=== PATIENT | female | born 1990 | race African-American/Black ===

== ENCOUNTER 2018-01-25 14:17 | Emergency (ER) | payer OTHER ==
[2018-01-25 15:09] LABS: BILIRUBIN,URINE NEGATIVE (NEG); COLOR,URINE YELLOW; GLUCOSE,URINE NEGATIVE (NEG); NITRITE,URINE NEGATIVE (NEG); PROTEIN,URINE NEGATIVE (NEG-TRACE)
[2018-01-25 15:18] LABS: CLARITY,URINE CLEAR
[2018-01-25 15:21] LABS: RBC,URINE 0 /HPF (0-2); WBC,URINE RARE /HPF (0-4)
[2018-01-25 15:22] LABS: BACTERIA,URINE 0 /HPF (0-FEW); SQUAMOUS EPITHELIAL CELL,UR FEW /LPF
[2018-01-26 14:33] LABS: CHLAMYDIA PROBE Negative (Negative); GC PROBE Negative (Negative)
== END 2018-01-25 16:12 | disposition home or self-care (01) ==
LOC: ER 14:17
DX: K64.9 Unspecified hemorrhoids (principal)
CPT/HCPCS: 81001; 87491; 87591; 99284; Q0111

== ENCOUNTER 2019-07-26 10:26 | Emergency (ER) | payer OTHER ==
[~2019-07-26] VITALS: Ht 152.4 cm; Wt 99.8 kg
[2019-07-26 10:30] VITALS: BP 132/55
[2019-07-26 11:25] LABS: BILIRUBIN,URINE NEGATIVE (NEG); CLARITY,URINE CLEAR; COLOR,URINE YELLOW; NITRITE,URINE NEGATIVE (NEG); PH,URINE 5.5; PROTEIN,URINE NEGATIVE (NEG-TRACE); UROBILINOGEN,URINE 0.2 mg/dL (0.2 mg/dL)
[2019-07-26 11:36] LABS: BACTERIA,URINE FEW /HPF (0-FEW); SQUAMOUS EPITHELIAL CELL,UR MOD /LPF
[2019-07-26] MEDS ORDERED: PHEN100T82 PO (12:07)
[2019-07-26] MEDS ORDERED: METR-34 PO (12:07)
[2019-07-26] MEDS ORDERED: CEPH-264 PO (12:07)
--- NOTE | 2019-07-26 12:08 | PHYS DOC ---
Past Medical History Past Medical History: No Pertinent History Past Surgical History: Other Additional Past Surgical Histo: breast reduction Alcohol Use: Occasionally Drug Use: None Adult General Chief Complaint Chief Complaint: VAGINAL PROBLEM HPI HPI Patient is a 29 year old AA female who presents to the emergency department with complaints of irregular chunky white vaginal discharge that started 2 weeks ago. Patient states she used Monistat probably 10 days ago and the symptoms improved for about 3 days but then began again after she had sex. She denies any vaginal odor. She states she has vaginal itching, white discharge, and that her labia feels swollen. Patient also reports pain with urination. She denies any concerns of sexually transmitted infections, she denies any new sexual partners. She currently rates her pain as 7-1/2 out of 10, there are no alleviating or exacerbating factors. She denies any hematuria, diarrhea, nausea, vomiting, low back pain, abdominal pain, or pelvic pain. All other ROS is neg unless otherwise noted in HPI. Review of Systems Review of Systems See Above Allergies Allergies Allergies Coded Allergies Type Severity Reaction Last Updated Verified No Known Drug Allergies 03/08/14 No Physical Exam Physical Exam See Above Constitutional: Well developed, well nourished, no acute distress, non-toxic appearance. [] HENT: Normocephalic, atraumatic, bilateral external ears normal, , nose normal. [] Eyes: PERRLA, EOMI, conjunctiva normal, no discharge. [] Neck: Normal range of motion, no stridor. [] Lungs & Thorax: Respirations even and unlabored, no retractions, no respiratory distress Pelvic Exam: Director And Professor present Megan CRUZ Abdomen: Nontender, soft External Genitalia: Normal Skin, mild swelling of vulva Speculum: Normal vaginal mucosa, chunky white vaginal discharge, normal cervical discharge Bimanual: No adnexal masses or tenderness, No CMT Skin: Warm, dry, no erythema, no rash. [] Back: No CVA tenderness. [] Extremities: No cyanosis, no clubbing, ROM intact, no edema. [] Neurologic: Alert and oriented X 3, no focal deficits noted. [] Psychologic: Affect normal, judgement normal, mood normal. [] Current Patient Data Vital Signs Vital Signs Date Time Temp Pulse Resp B/P (MAP) Pulse Ox O2 Delivery O2 Flow Rate FiO2 07/26/19 10:30 97.6 99 17 132/55 (80) 99 Room Air 97.6 Lab Values Laboratory Tests Test 07/26/19 10:33 07/26/19 10:41 Urine Collection Type Void Urine Color Yellow Urine Clarity Clear Urine pH 5.5 Urine Specific [place] 1.025 Urine Protein Negative mg/dL (NEG-TRACE) Urine Glucose (UA) Negative mg/dL (NEG) Urine Ketones (Stick) Negative mg/dL (NEG) Urine Blood Trace (NEG) Urine Nitrite Negative (NEG) Urine Bilirubin Negative (NEG) Urine Urobilinogen Dipstick 0.2 mg/dL (0.2 mg/dL) Urine Leukocyte Esterase Large (NEG) Urine RBC 1-2 /HPF (0-2) Urine WBC 5-10 /HPF (0-4) Urine Squamous Epithelial Cells Mod /LPF Urine Bacteria Few /HPF (0-FEW) Urine Mucus Mod /LPF POC Urine HCG, Qualitative Hcg negative (Negative) Microbiology 07/26/19 Wet Prep - Final, Complete EKG EKG [] Radiology/Procedures Radiology/Procedures [] Course & Med Decision Making Course & Med Decision Making Pertinent Labs and Imaging studies reviewed. (See chart for details) dx: UTI, BV wet mount concerning for clue cells, no yeast. UA concerning for UTI Prescriptions for keflex, flagyl, and pyridium Patient verbalized an understanding of home care, medications, follow-up, and return to ED instructions and was in agreement with the plan of care. [] Dragon Disclaimer Dragon Disclaimer This electronic medical record was generated, in whole or in part, using a voice recognition dictation system. Departure Departure Impression: Primary Impression: UTI (lower urinary tract infection) Additional Impression: BV (bacterial vaginosis) Disposition: 01 HOME, SELF-CARE Condition: STABLE Referrals: UNKNOWN PCP NAME (PCP) Patient Instructions: Bacterial Vaginosis, [id number], Urinary Tract Infection, [id number] Additional Instructions: Fill the prescriptions and use as directed. Increase clear fluid intake and avoid bladder irritants such as spicy foods, caffeine, and carbonation. The results of your gonorrhea and chlamydia testing will not be available for 48 hours. Follow-up with your HOUSEKEEPING SUPERVISOR next week. Return to the emergency room if symptoms worsen. Scripts Phenazopyridine Hcl (PYRIDIUM) 100 Mg Tablet 1 TAB PO TID for urinary discomfort for 3 Days, #9 TAB 0 Refills Prov: ANALI CHRISTIAN APRN 07/26/19 Metronidazole (METRONIDAZOLE) 500 Mg Tablet 1 TAB PO BID for 7 Days, #14 TAB 0 Refills Prov: ANALI CHRISTIAN APRN 07/26/19 Cephalexin (KEFLEX) 500 Mg Capsule 1 CAP PO BID for 7 Days, #14 CAP 0 Refills Prov: ANALI CHRISTIAN APRN 07/26/19 Problem Qualifiers ANALI CHRISTIAN APRN Jul 26, 2019 12:07
[2019-07-27 16:12] LABS: GC PROBE Negative (Negative)
== END 2019-07-26 12:18 | disposition home or self-care (01) ==
LOC: ER 10:26
DX: N39.0 Urinary tract infection, site not specified (principal); N76.0 Acute vaginitis; B96.89 Other specified bacterial agents as the cause of diseases classified elsewhere
CPT/HCPCS: 81001; 81025; 87086; 87491; 87591; 99284; Q0111